=== PATIENT | female | born 1960 | race Caucasian/White ===

== ENCOUNTER 2023-06-29 04:21 | Day surgery (SDC) | payer BC ==
[2023-06-26 07:43] VITALS: BMI 26.2
[2023-06-29 10:31] VITALS: TEMP 97.3
[2023-06-29 10:56] VITALS: PULSE 58
[2023-06-29 11:11] VITALS: BP 103/73; RESP 15
== END 2023-06-29 11:24 | disposition home or self-care (01) ==
LOC: JASU-ENDO 04:21
PROVIDERS: ATTEND Internal Medicine Gastroenterology
PROC: 0DB98ZX Excision of Duodenum, Via Natural or Artificial Opening Endoscopic, Diagnostic (ICD-10-PCS; 2023-06-29)
PROC: 0DB68ZX Excision of Stomach, Via Natural or Artificial Opening Endoscopic, Diagnostic (ICD-10-PCS; 2023-06-29)
PROC: 0DBE8ZX Excision of Large Intestine, Via Natural or Artificial Opening Endoscopic, Diagnostic (ICD-10-PCS; principal; 2023-06-29 10:00)
DX: Z12.11 Encounter for screening for malignant neoplasm of colon (principal); D12.1 Benign neoplasm of appendix; K64.8 Other hemorrhoids; Z86.010 Personal history of colon polyps; K29.50 Unspecified chronic gastritis without bleeding; K44.9 Diaphragmatic hernia without obstruction or gangrene
CPT/HCPCS: 88305-TC; 88342-TC